=== PATIENT | male | born 1950 | race Caucasian/White ===

== ENCOUNTER 2020-04-29 04:14 | Day surgery (SDC) | payer OTHER ==
[2020-04-28 13:17] VITALS: BMI 31.1
--- OUTSIDE RECORDS SUMMARY | 2020-04-29 04:18 | XMS ---
:1950 Author Organization [facility] Support Name Relationship Address Phone [place] [address] [employer] Unavailable [address] [facility] [place] [address] [employer] Unavailable [address] [place] [address] TOMEKA CRUZ [address] [phone] [place] [address] Re-disclosure Warning The records that you are about to access may contain information from federally- assisted alcohol or drug abuse programs. If such information is present, then the following federally mandated warning applies: This information has been disclosed to you from records protected by federal confidentiality rules (42 CFR part 2). The federal rules prohibit you from making any further disclosure of this information unless further disclosure is expressly permitted by the written consent of the person to whom it pertains or as otherwise permitted by 42 CFR part 2. A general authorization for the release of medical or other information is NOT sufficient for this purpose. The Federal rules restrict any use of the information to criminally investigate or prosecute any alcohol or drug abuse patient.The records that you are about to access may contain highly sensitive health information, the redisclosure of which is protected by Article 27-F of the [place] State Public Health law. If you continue you may haveaccess to information: Regarding HIV / AIDS; Provided by facilities licensed or operated by the [facility] Office of Mental Health; or Provided by the [facility] Office for People With Developmental Disabilities. If such information is present, then the following [facility] mandated warning applies: This information has been disclosed to you from confidential records which are protected by state law. State law prohibits you from making any further disclosure of this information without the specific written consent of the person to whom it pertains, or as otherwise permitted by law. Any unauthorized further disclosure in violation of state law may result in a fine or alf sentence or both. A general authorization for the release of medical or other information is NOT sufficient authorization for further disclosure. Insurance Providers Payer name Policy type Policy ID Covered Covered alliance party's Policy P karina / Coverage alliance party ID relationship to [employer] Inf ormation type whitaker HIP MEDICARE [id number] VIP 1 HIP MEDICARE [id number] VIP 1 Results ID Date Data Source [id number] 01/18/2020 03:15:00 PM EDT [facility] Name Value Range Interpretation Code Description Data Nadine rce(s) Supporting Document(s ) COV2 [facility] This lab was ordered by GISSELLE contreras nd reported by [facility] [place]. Procedure
[2020-04-29 07:05] LABS: HEMATOCRIT 44.7 % (35.4-49); HEMOGLOBIN 14.9 GM/dL (11.7-16.9); MCH 30.2 pg (25.7-33.7); MCHC 33.2 g/dl (32.0-35.9); MEAN CELL VOLUME 90.8 fl (80-96); MEAN PLT VOLUME 8.6 fl (7.5-11.1); PLATELET COUNT 219 K/MM3 (134-434); RBC 4.92 M/mm3 (4.00-5.60); RDW 13.5 % (11.9-15.9); WHITE BLOOD COUNT 8.4 K/mm3 (4.0-10.0)
[2020-04-29] MEDS ORDERED: SUCCINYLCHOLINE CHLORIDE 200 MG/10 ML SYRINGE ONE (07:37)
[2020-04-29] MEDS ORDERED: PROPOFOL 20 ML ONE ×7 (07:37)
[2020-04-29] MEDS ORDERED: fentaNYL CITRATE 250 MCG/5 ML VIAL ONE ×2 (07:38→09:01)
[2020-04-29] MEDS ORDERED: LIDOCAINE 1%/EPI 1:100000 (50 ML MULTI DOSE VIAL) ONE (07:38)
[2020-04-29 07:39] LABS: ALBUMIN 3.7 g/dl (3.4-5.0); BILIRUBIN,TOTAL 0.2 mg/dL (0.2-1); BLOOD UREA NITROGEN 18.3 mg/dL (7-18); CALCIUM 8.9 mg/dL (8.5-10.1); CREATININE 1.1 mg/dL (0.55-1.3); POTASSIUM 4.7 mmol/L (3.5-5.1); TOT PROT 7.9 g/dl (6.4-8.2)
[2020-04-29] MEDS ORDERED: ROCURONIUM BROMIDE 50 MG/5 ML SYRINGE ONE (08:01)
[2020-04-29] MEDS ORDERED: ceFAZolin SODIUM 1 GM VIAL IVPB ONE (08:25)
[2020-04-29] MEDS ORDERED: BUPIVACAINE HCL/PF 0.5% (5 MG/ML) 30 ML VIAL IJ ONE (08:55)
[2020-04-29] MEDS ORDERED: LIDOCAINE 1%/EPI 1:100000 (20 ML MULTI DOSE VIAL) IJ ONE (08:55)
[2020-04-29 09:15] LABS: INR 0.94 (0.83-1.09); PROTHROMBIN TIME (PATIENT) 11.1 SEC (9.7-13.0)
--- NOTE | 2020-04-29 10:31 | EKG ---
Test Reason : Blood Pressure : / mmHG Vent. Rate : 067 BPM Atrial Rate : 067 BPM P-R Int : 210 ms QRS Dur : 070 ms QT Int : 408 ms P-R-T Axes : 019 037 051 degrees QTc Int : 431 ms SINUS RHYTHM WITH 1ST DEGREE A-V BLOCK OTHERWISE NORMAL ECG WHEN COMPARED WITH ECG OF 18-SEP-2013 10:17, NO SIGNIFICANT CHANGE WAS FOUND Confirmed by CHEYANNE ROWLEY MD ([id number]) on 04/29/2020 10:31:18 AM Referred By: Jacob Paredes Confirmed By:CHEYANNE ROWLEY MD
[2020-04-29] MEDS ORDERED: THROMBIN (BOVINE) 5,000 UNIT VIAL TP ONE (10:38)
[2020-04-29] MEDS ORDERED: BACITRACIN 15 GM TUBE TOPICAL OINTMENT ONE (11:42)
[2020-04-29] MEDS ORDERED: BACITRACIN 15 GM TUBE TOPICAL OINTMENT TP ONE (11:45)
[2020-04-29] MEDS ORDERED: NEOSTIGMINE METHYLSULFATE 0.5 MG/ML - 10 ML MDV ONE (11:49)
[2020-04-29] MEDS ORDERED: LACTATED RINGERS SOLUTION 1,000 ML IV SCH (12:00)
[2020-04-29] MEDS ORDERED: ONDANSETRON 4 MG/2 ML VIAL IVPUSH PRN (12:41)
--- NOTE | 2020-04-29 12:49 | OP ---
DATE OF OPERATION: 04/29/2020 SURGICAL ATTENDING: Bernardino Bourgeois MD MANAGER QUANTITATIVE: Leodan Duncan MD PREOPERATIVE DIAGNOSIS: Right parotid tumor. POSTOPERATIVE DIAGNOSIS: Right parotid tumor. ANESTHESIA: General endotracheal. PROCEDURE: 1. Right superficial parotidectomy with facial nerve dissection. 2. Right level IIA cervical lymph node biopsy. DESCRIPTION OF PROCEDURE: The patient was taken into the operating room, placed in the supine position, endotracheally intubated. Neck ultrasound was performed, showing 3 hypoechoic nodules in the right parotid gland. No other lesions were seen in the remainder of the right upper neck and parotid region. The neck was then prepped and draped in the usual sterile fashion. Local anesthesia was administered. A sickle-shaped incision was made anterior to the right ear and onto the upper neck. This was carried down through subcutaneous tissues and platysma. Subplatysmal flaps were raised anteriorly, and the flap was retracted with fishhooks. The great auricular nerve was dissected and preserved. Dissection continued along the sternocleidomastoid muscle and the digastric muscle. The main trunk of the facial nerve was identified and dissected forward where the bifurcation was identified. The parotid gland was dissected off of the facial nerve. The lowermost branch was adherent to the tumor and could not be and was therefore transected and left on the specimen. Dissection continued inferiorly to the tumor lifting it up out of the neck. The parotid gland was then transected superiorly and anteriorly to the tumor masses. Intraoperative ultrasound was also used to confirm complete excision of all nodules. Note that nerve monitoring was utilized throughout. Frozen section was taken of the right parotid as well as a right level IIA enlarged cervical lymph node. Both were read as benign. Gelfoam and thrombin were then placed in the wound. A drain was placed and sutured to the skin. The wound was then closed in 2 layers. Dermabond and bacitracin were then placed. The patient was then awakened, extubated and taken to recovery in stable condition. Dr. Bourgeois, the attending surgeon, was present throughout the entire procedure. BERNARDINO BOURGEOIS M.D. [id number]
--- NOTE | 2020-04-29 13:16 | SURG ---
Surgery Distribution Agent Note Distribution Agent: Leodan Duncan MD Date of Service: 04/29/20 Diagnosis: parotid tumor Procedure: right superficial parotidectomy with neck dissection and right level IIA cervical lymph node biopsy. I was present for the entirety of the operative procedure. For further detail, please refer to operative report.
[2020-04-29 15:18] VITALS: TEMP 96.9
[2020-04-29 16:23] VITALS: BP 116/64; PULSE 83
--- NOTE | 2020-05-03 11:08 | PATH ---
Surgical Pathology Report Patient Name: KAL CRUZ [facility]. Rec. #: [id number] /Age/Gender: 1950 (Age: 70) / M Account: [id number] Location: [facility] SURGICAL Taken: 04/29/2020 Received: 04/29/2020 Reported: 05/03/2020 Physicians: Jacob Paredes M.D. Specimen(s) Received A: CAROTID MASS/CERVICAL LYMPH NODE, LEVEL 2A, RIGHT (FS) B: RIGHT PAROTID TUMOR (FS) Clinical History Right carotid mass, right parotid tumor Intraoperative Consult Diagnosis A. Right carotid mass for frozen section: Lymphoid tissue, no definitive malignancy identified. B. 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 Benign lymphoid tissue. Christine Sharma M.D., 04/29/2020 Final Diagnosis A. CAROTID MASS/CERVICAL LYMPH NODE, LEVEL 2A, RIGHT, EXCISION (FS): ONE BENIGN LYMPH NODE (0/1). B. PAROTID TUMOR, RIGHT, PAROTIDECTOMY (FS): WARTHIN TUMOR, 2 CM. SIX BENIGN LYMPH NODES (0/6); THREE (3) ARE INTRAPAROTID. SKELETAL MUSCLE PRESENT. Electronically Signed Cady العلي M.D. Gross Description A. Received fresh labeled "right cervical level 2A lymph node," is a 1.8 x 0.5 x 0.5 cm kenney-pink lymph node. The specimen is bisected and a touch prep is performed. The specimen is entirely submitted for frozen section. The frozen section residue is entirely submitted in one cassette. B. Received fresh labeled "right parotid tumor," is a 5.5 x 4.5 x 2.0 cm yellow, lobulated, irregular portion of soft tissue with a short stitch marking the superficial surface and a long stitch marking the lateral aspect of the specimen, per the surgeon. The specimen is inked as follows: Superficial black; posterior green; lateral red; medial yellow; superior red; inferior blue. The specimen is serially sectioned from medial to lateral. Sectioning reveals predominantly yellow, lobulated adipose tissue. There is a cystic mass containing serous fluid measuring 2 x 1.2 cm, at the medial aspect of the specimen. There is a kenney-pink nodule at the lateral aspect of the specimen. A touch prep is performed and three sales development representative sections are submitted for frozen section. [employer] [facility] Specialist sections are submitted in 13 cassettes as follows: 1-frozen section residue of cystic mass at medial aspect of specimen; 2-frozen section residue of nodule at lateral aspect of specimen; 3-frozen section residue of additional cystic mass at medial aspect of specimen; 4-medial margin; [id number] and sequentially submitted specimen from medial to lateral (one bisected section in cassette 5/6, 7/8, 03/31); 13-lateral margin. 04/29/2020 [facility]04/29/2020
== END 2020-04-29 17:39 | disposition home or self-care (01) ==
LOC: JASU-SURG 04:14
PROVIDERS: ATTEND Surgery
PROC: 00BM0ZZ Excision of Facial Nerve, Open Approach (ICD-10-PCS; 2020-04-29)
PROC: 07B10ZX Excision of Right Neck Lymphatic, Open Approach, Diagnostic (ICD-10-PCS; 2020-04-29)
PROC: 0CB80ZZ Excision of Right Parotid Gland, Open Approach (ICD-10-PCS; principal; 2020-04-29 08:00)
DX: D11.0 Benign neoplasm of parotid gland (principal)
CPT/HCPCS: 36415; 80053; 85027; 85610; 88307-TC; 88331-TC; 88332; 93005; 93010; 94760

== ENCOUNTER 2023-07-29 12:29 | Emergency (ER) | payer OTHER ==
[2023-07-29 12:32] VITALS: BP 158/74; PULSE 76; RESP 20; TEMP 97.9; BMI 25.8
== END 2023-07-29 16:23 | disposition home or self-care (01) ==
LOC: JERFT 12:29
DX: S52.501A Unspecified fracture of the lower end of right radius, initial encounter for closed fracture (principal); M25.531 Pain in right wrist; W19.XXXA Unspecified fall, initial encounter; Y99.0 Civilian activity done for income or pay
CPT/HCPCS: 73070-TC-RT-FY; 73090-TC-RT-FY; 73110-TC-RT-FY; 73130-TC-RT-FY; 99283-25

== ENCOUNTER 2024-04-20 05:20 | Day surgery (SDC) | payer OTHER ==
[2024-04-14 15:16] VITALS: BMI 24.5
[2024-04-20 08:37] VITALS: TEMP 98.3
[2024-04-20 09:14] VITALS: BP 118/68; PULSE 67; RESP 14
== END 2024-04-20 09:20 | disposition home or self-care (01) ==
LOC: JASU-ENDO 05:20
PROVIDERS: ATTEND Internal Medicine Gastroenterology
PROC: 0DJ08ZZ Inspection of Upper Intestinal Tract, Via Natural or Artificial Opening Endoscopic (ICD-10-PCS; principal; 2024-04-20 08:00)
DX: Z13.810 Encounter for screening for upper gastrointestinal disorder (principal); Z80.0 Family history of malignant neoplasm of digestive organs
CPT/HCPCS: 82962

== ENCOUNTER 2024-06-04 05:37 | Day surgery (SDC) | payer OTHER ==
[2024-05-27 15:23] VITALS: BMI 24.5
[2024-06-04 10:46] VITALS: TEMP 98.1
[2024-06-04 10:59] VITALS: RESP 18
[2024-06-04 11:19] VITALS: BP 105/66; PULSE 67
== END 2024-06-04 11:25 | disposition home or self-care (01) ==
LOC: JASU-ENDO 05:37
PROVIDERS: ATTEND Internal Medicine Gastroenterology
PROC: 0DBM8ZX Excision of Descending Colon, Via Natural or Artificial Opening Endoscopic, Diagnostic (ICD-10-PCS; 2024-06-04)
PROC: 0DB68ZX Excision of Stomach, Via Natural or Artificial Opening Endoscopic, Diagnostic (ICD-10-PCS; 2024-06-04)
PROC: 0DB78ZX Excision of Stomach, Pylorus, Via Natural or Artificial Opening Endoscopic, Diagnostic (ICD-10-PCS; 2024-06-04)
PROC: 0DBL8ZX Excision of Transverse Colon, Via Natural or Artificial Opening Endoscopic, Diagnostic (ICD-10-PCS; principal; 2024-06-04 09:45)
DX: Z12.11 Encounter for screening for malignant neoplasm of colon (principal); D12.3 Benign neoplasm of transverse colon; D12.4 Benign neoplasm of descending colon; K29.50 Unspecified chronic gastritis without bleeding; B96.81 Helicobacter pylori [H. pylori] as the cause of diseases classified elsewhere; K55.20 Angiodysplasia of colon without hemorrhage; K64.8 Other hemorrhoids; Z80.0 Family history of malignant neoplasm of digestive organs
CPT/HCPCS: 82962; 88305-TC; 88341-TC; 88342-TC